=== PATIENT | male | born 1990 | race Caucasian/White ===

== ENCOUNTER 2017-01-07 18:01 | Emergency (ER) | payer MEDICAID ==
[~2017-01-07] VITALS: Ht 188 cm; Wt 174.6 kg
[2017-01-07 18:38] VITALS: BP 122/85
[2017-01-07] MEDS ORDERED: diphenhdrAMINE HCL 50 MG/1 ML VL ONE (19:45)
[2017-01-07] MEDS ORDERED: diphenhdrAMINE HCL 50 MG/1 ML VL IM ONE (19:45)
== END 2017-01-07 20:10 | disposition home or self-care (01) ==
LOC: ER 18:22
DX: L25.9 Unspecified contact dermatitis, unspecified cause (principal); L50.9 Urticaria, unspecified; T14.8 Other injury of unspecified body region
CPT/HCPCS: 96372; 99283; J1200